=== PATIENT | female | born 2000 | race African-American/Black ===

== ENCOUNTER 2020-10-19 18:00 | Emergency (ER) | payer OTHER ==
[2020-10-19 19:01] LABS: BILIRUBIN,URINE NEGATIVE (NEGATIVE); GLUCOSE, URINE (UA) NEGATIVE (NEGATIVE); KETONES,URINE (UA) NEGATIVE (NEGATIVE); LEUKOCYTE ESTERASE, URINE NEGATIVE (NEGATIVE); NITRITE,URINE NEGATIVE (NEGATIVE); OCCULT BLOOD,URINE NEGATIVE (NEGATIVE); PROTEIN,URINE NEGATIVE (NEGATIVE); UROBILINOGEN,URINE 0.2 (NORMAL) E.U./dL (NORMAL)
[2020-10-19 19:03] LABS: CLARITY,URINE CLEAR (CLEAR); HCG UR QUAL NEGATIVE
--- NOTE | 2020-10-19 20:01 | ED Physician Documentation ---
History of Present Illness - Stated complaint Stated Complaint: FEMALE - Chief complaint Chief Complaint: General - History obtained from History obtained from: Patient - History of Present Illness Timing: Yesterday Pain level max: 2 Pain level now: 1 - Additonal information Additional information: 19-year-old female presents to the emergency department complaining of swelling to the left labia. Started last night and has continued today. Occurred once in the past. Resolved on its own after a few hours. Nothing makes it better or worse. No new soaps, detergents, lotions, lubricants. Review of Systems Constitutional: denies: Fever, Chills GI: denies: Vomiting, Diarrhea Skin: denies: Rash PD PAST MEDICAL HISTORY - Past Medical History Past Medical History: No - Past Surgical History Past Surgical History: No - Present Medications Home Medications: Ambulatory Orders Medication Instructions Recorded Confirmed Sulfamethox/Trimeth 800/160 1 each PO BID #14 tab 10/19/20 [Bactrim Ds 800/160] - Allergies Allergies/Adverse Reactions: Allergies Allergy/AdvReac Type Severity Reaction Status Date / Time No Known Drug Allergies Allergy Verified 10/19/20 18:10 PD ED PE NORMAL - Vitals Vital signs reviewed: Yes - General General: Alert and oriented X 3, No acute distress - Female Female : Line Pilot present (EVANGELISTA Kebede), Other (Mild swelling to the left Bartholin's gland. No skin changes. No drainage. Otherwise normal external exam) - Derm Derm: Warm and dry - Neuro Neuro: Alert and oriented X 3 - Psych Psych: Normal mood, Normal affect Results - Vitals Vitals: Vital Signs - 24 hr 10/19/20 10/19/20 18:06 20:12 Temperature 36.7 C 36.5 C Heart Rate 86 88 Respiratory 14 18 Rate Blood Pressure 154/77 H 120/71 O2 Saturation 100 100 Oxygen O2 Source Room air - Labs Labs: Laboratory Tests 10/19/20 18:49 Urine Color YELLOW Urine Clarity CLEAR Urine pH 6.0 Ur Specific Tovey <=1.005 Urine Protein NEGATIVE Urine Glucose (UA) NEGATIVE Urine Ketones NEGATIVE Urine Occult Blood NEGATIVE Urine Nitrite NEGATIVE Urine Bilirubin NEGATIVE Urine Urobilinogen 0.2 (NORMAL) Ur Leukocyte Esterase NEGATIVE Ur Microscopic Review NOT INDICATED Urine Culture Comments NOT INDICATED Urine HCG, Qual NEGATIVE PD MEDICAL DECISION MAKING - ED course Complexity details: considered differential, d/w patient ED course: 19-year-old female with a small Bartholin's gland cyst. Does not appear infected. Will trial conservative measures first, if fails to improve, she will start antibiotics and follow-up with her doctor. Patient counseled regarding signs and symptoms for which I believe and urgent re-evaluation would be necessary. Patient with good understanding of and agreement to plan and is comfortable going home at this time This document was made in part using voice recognition software. While efforts are made to proofread this document, sound alike and grammatical errors may occur. Departure - Departure Disposition: 01 Home, Self Care Clinical Impression: Bartholin gland cyst Condition: Good Instructions: ED Bartholins Cyst No Infec Follow-Up: your,doctor in 1 week [Other] Prescriptions: Sulfamethox/Trimeth 800/160 [Bactrim Ds 800/160] 1 each PO BID #14 tab Comments: The cyst does not appear infected at this time, however if this continues to worsen despite conservative treatment, start the antibiotics and follow-up with your doctor. Return if you worsen Discharge Date/Time: 10/19/20 20:12
[2020-10-19 20:14] VITALS: BP 120/71
== END 2020-10-19 20:12 | disposition home or self-care (01) ==
LOC: ED 18:00
DX: N75.0 Cyst of Bartholin's gland (principal)
CPT/HCPCS: 81001; 81003; 81025; 87086; 99283; 99284

== ENCOUNTER 2021-03-01 16:11 | Emergency (ER) | payer OTHER ==
[2021-03-01 16:24] VITALS: BP 144/68
--- NOTE | 2021-03-01 17:16 | ED Physician Documentation ---
PD HPI SKIN - Stated complaint Stated Complaint: HIVES - Chief complaint Chief Complaint: Wound - History obtained from History obtained from: Patient - History of Present Illness Timing - onset: Yesterday Timing - duration: Days (2) Timing - details: Abrupt onset, Still present, Waxing and waning Location: [place] Quality / character: Itchy, Discolored, Raised (patchy flat slightly raised c/w hives). No: Vesicular Improved by: Benadryl (improved moderately last evening but returned few hours later.) Associated symptoms: No: Fever, Facial swelling, Dyspnea, Abd pain, N/V/D Contributing factors: No: Exposed to medication, Exposed to food, Exposed to soap / lotion, Insect bite /sting, Recent illness Similar symptoms before: Has not had sx before Recently seen: Not recently seen Review of Systems Constitutional: denies: Fever, Chills Nose: reports: Sinus pressure / pain. denies: Rhinorrhea / runny nose, Congestion Throat: denies: Sore throat Respiratory: denies: Dyspnea, Cough GI: denies: Nausea, Vomiting Skin: reports: Rash (hives) Neurologic: denies: Near syncope, Altered mental status, Headache PD PAST MEDICAL HISTORY - Past Medical History Past Medical History: Yes Cardiovascular: Deep vein thrombosis Respiratory: None Neuro: None Endocrine/Autoimmune: None - Past Surgical History Past Surgical History: Yes - Present Medications Home Medications: Ambulatory Orders Medication Instructions Recorded Confirmed Cetirizine [ZyrTEC] 10 mg PO BID #15 tablet 03/01/21 dexAMETHasone [Decadron] 4 mg PO DAILY #5 tablet 03/01/21 - Allergies Allergies/Adverse Reactions: Allergies Allergy/AdvReac Type Severity Reaction Status Date / Time No Known Drug Allergies Allergy Verified 03/01/21 16:23 - Social History Does the pt smoke?: No Smoking Status: Never smoker Does the pt drink ETOH?: No Does the pt have substance abuse?: No - Immunizations Immunizations are current?: Yes PD ED PE NORMAL - Vitals Vital signs reviewed: Yes - General General: Alert and oriented X 3, No acute distress, Well developed/nourished - HEENT HEENT: Pharynx benign (no oral swelling. Normal voice. ) - Neck Neck: Supple, no meningeal sign, No adenopathy - Cardiac Cardiac: RRR, No murmur - Respiratory Respiratory: Clear bilaterally - Derm Derm: Normal color, Warm and dry, Other (patchy nonvesicular slightly raised red itchy rash c/w hives. ) - Neuro Neuro: Alert and oriented X 3, No motor deficit, Normal speech Results - Vitals Vitals: Oxygen O2 Source Room air PD MEDICAL DECISION MAKING - ED course Complexity details: considered differential (has diffuse hives without eric oedema. ), d/w patient Departure - Departure Disposition: 01 Home, Self Care Clinical Impression: Acute urticaria Condition: Stable Record reviewed to determine appropriate education?: Yes Instructions: ED Urticaria Follow-Up: LILLIANA BLANCHARD DO [Primary Care Provider] - Prescriptions: dexAMETHasone [Decadron] 4 mg PO DAILY #5 tablet Cetirizine [ZyrTEC] 10 mg PO BID #15 tablet Comments: Stay well-hydrated. Use the Decadron steroid anti-inflammatory daily for 5 more days. Cetirizine antihistamine twice daily for the next 5 days to a week. You can continue Benadryl every 6 hours if needed for itching as well. I would anticipate improvement and resolution in this over the next 2 to 3 days. Recheck if not improved in that timeframe or if recurrent in the near future. Most episodes of hives like this are solitary and nonrecurring. If it persists or recurs soon, then there will be consideration for allergy testing or further evaluation of the cause. Discharge Date/Time: 03/01/21 17:43
[2021-03-01] MEDS ORDERED: DEXAMETHASONE 10 MG/ML VIAL PO STA (17:27)
[2021-03-01] MEDS ORDERED: CHERRY SYRUP 10 ML UDC PO ONE (17:27)
[2021-03-01] MEDS ORDERED: CETIRIZINE 10 MG TABLET PO STA (17:27)
[2021-03-01] MEDS ORDERED: diphenhydrAMINE 25 MG CAPSULE PO STA (17:28)
== END 2021-03-01 17:43 | disposition home or self-care (01) ==
LOC: ED 16:11
DX: L50.9 Urticaria, unspecified (principal); Z86.718 Personal history of other venous thrombosis and embolism
CPT/HCPCS: 99282; 99284; A9270

== ENCOUNTER 2022-02-23 17:39 | Emergency (ER) | payer OTHER ==
[2022-02-23] MEDS ORDERED: ONDANSETRON 4 MG/2 ML VIAL IVP STA (18:18)
[2022-02-23] MEDS ORDERED: SODIUM CHLORIDE 0.9% 1,000 ML IV STA (18:18)
--- NOTE | 2022-02-23 18:24 | ED Physician Documentation ---
History of Present Illness - Stated complaint Stated Complaint: SOA/DIZZY - Chief complaint Chief Complaint: Resp - Additonal information Additional information: 21-year-old female who is 11 weeks presents the emergency department f or generally feeling unwell. She reports that she began feeling heaviness in her chest and short of air this morning. Over the last 2 to 3 days she is also developed a subtle mostly right-sided headache. She has had uncontrolled nausea and vomiting in this . She is currently taking progesterone vaginally. A1. No lower pelvic pain. No vaginal bleeding or spotting. 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 She did require mechanical clot extraction as well as thrombectomy. She states that she had a allergic reaction to the suspected tPA that was instilled though she is unable to tell me what this reaction was. She denies any recent travel. No leg swelling or calf pain. no dysuria Review of Systems Constitutional: denies: Fever, Chills Eyes: reports: Reviewed and negative Nose: reports: Reviewed and negative Throat: reports: Reviewed and negative Cardiac: reports: Reviewed and negative Respiratory: reports: Reviewed and negative GI: reports: Nausea : reports: Reviewed and negative PD PAST MEDICAL HISTORY - Past Medical History Cardiovascular: Deep vein thrombosis Respiratory: None Neuro: None Endocrine/Autoimmune: None - Past Surgical History Past Surgical History: Yes - Present Medications Home Medications: Ambulatory Orders Medication Instructions Recorded Confirmed Cetirizine [ZyrTEC] 10 mg PO BID #15 tablet 03/01/21 dexAMETHasone [Decadron] 4 mg PO DAILY #5 tablet 03/01/21 Ondansetron Odt [Zofran] 4 mg TL Q6H PRN #10 tablet 02/23/22 - Allergies Allergies/Adverse Reactions: Allergies Allergy/AdvReac Type Severity Reaction Status Date / Time banana Allergy Respiratory Verified 02/23/22 17:57 melon Allergy Respiratory Verified 02/23/22 17:57 - Social History Does the pt smoke?: No Smoking Status: Never smoker Does the pt drink ETOH?: No Does the pt have substance abuse?: No - Immunizations Immunizations are current?: Yes PD ED PE NORMAL - General General: Alert and oriented X 3, No acute distress, Well developed/nourished - HEENT HEENT: Atraumatic, Moist mucous membranes - Neck Neck: Supple, no meningeal sign, No adenopathy - Cardiac Cardiac: RRR, No murmur - Respiratory Respiratory: No respiratory distress - Abdomen Abdomen: Normal bowel sounds, Soft, Non tender - Back Back: No CVA TTP, No spinal TTP - Derm Derm: Normal color, Warm and dry, No rash - Extremities Extremities: No deformity, No tenderness to palpate, Normal ROM s pain - Neuro Neuro: Alert and oriented X 3, workforce services representative 2-12 intact Eye Opening: Spontaneous Motor: Obeys Commands Verbal: Oriented GCS Score: 15 Results - Vitals Vitals: Vital Signs - 24 hr 02/23/22 02/23/22 02/23/22 17:48 18:14 19:00 Temperature 36.9 C Heart Rate 88 93 85 Respiratory 14 16 21 Rate Blood Pressure 144/81 H 157/96 H 140/78 H O2 Saturation 100 100 100 Oxygen O2 Source Room air - Labs Labs: Laboratory Tests 02/23/22 02/23/22 02/23/22 18:20 18:20 18:20 WBC 7.6 RBC 4.59 Hgb 12.8 Hct 37.7 MCV 82.1 MCH 27.9 MCHC 34.0 RDW 13.0 Plt Count 248 MPV 10.1 Neut # (Auto) 4.5 Lymph # (Auto) 2.5 Mclean # (Auto) 0.5 Eos # (Auto) 0.1 Baso # (Auto) 0.0 Absolute Nucleated RBC 0.00 Nucleated RBC % 0.0 D-Dimer 255.0 Sodium 137 Potassium 3.7 Chloride 103 Carbon Dioxide 24 Anion Gap 10.0 BUN 9 Creatinine 0.7 Estimated GFR (MDRD) 127 Glucose 85 Calcium 9.9 Total Bilirubin 0.4 AST 18 ALT 17 Alkaline Phosphatase 41 L Total Protein 8.3 H Albumin 4.3 Globulin 4.0 Albumin/Globulin Ratio 1.1 Lipase 47 - Rads (name of study) CT head Radiology: Final report received (Unremarkable CT of the brain without intracranial hemorrhage or mass-effect.) PD MEDICAL DECISION MAKING - ED course Complexity details: considered differential, d/w patient, d/w family ED course: 21-year-old female who is approximately 11 weeks presents the emergency department for evaluation of shortness of air that began this morning as well as headache and feeling generally unwell. She is taking progesterone intravaginally. She is followed by [facility]. She does have a history of a dural venous thrombus in 2017 that was mechanically extracted and also required the use of tPA. Patient appears very well without any hypoxia or labored breathing. She has no leg swelling. Unremarkable cardiopulmonary auscultation. Given the history of dural venous thrombus a CT of the head was completed which was negative. She has no focal neurodeficits. In addition to this given the history of sinus thrombus a D-dimer was completed which is negative. This essentially makes a PE and or a dural venous thrombus on likely. Here in the emergency department she was given a liter of IV fluids as well as some Zofran with some improvement in her symptoms. a limited bedside ultrasound reveals a live IUP with movement. heart rate noted to be 166. I have attempted to reach [facility] cho[facility] 2[facility] to no avail. PT will be dc home. rx for zofran. f/u with OB, emergent return precautions discussed Departure - Departure Disposition: 01 Home, Self Care Clinical Impression: Shortness of breath Nausea and vomiting Qualifiers: Vomiting type: unspecified Qualified Code(s): R11.2 - Nausea with vomiting, unspecified Condition: Stable Record reviewed to determine appropriate education?: Yes Prescriptions: Ondansetron Odt [Zofran] 4 mg TL Q6H PRN #10 tablet PRN Reason: Nausea / Vomiting Comments: Ailyn you are seen today in the emergency department because you have had a headache and shortness of breath. Your screening labs are essentially normal including the D-dimer which is a Lab that is used to evaluate your risk of forming clots abnormally. The CT of your head did not show any worrisome findings. Here in the emergency department we did give you a liter of IV fluid as well as some Zofran which seems to be making her symptoms better. Very limited bedside ultrasound did reveal a intrauterine with good movement as well as a heart rate of 166. To help manage the nausea and sent [facility] [place]. Please discuss this ED visit with your OB. If at any point you have fainting episodes, sudden severe headache, uncontrolled vomiting, or racing heart while at rest then please return to the ER for second evaluation.
[2022-02-23 18:26] LABS: BASOPHILS % (AUTO) 0.5 %; EOSINOPHILS # (AUTO) 0.1 10^3/uL (0.0-0.7); EOSINOPHILS % (AUTO) 1.9 %; HCT - HEMATOCRIT 37.7 % (37.0-47.0); HGB - HEMOGLOBIN 12.8 g/dL (12.0-16.0); LYMPHOCYTES # (AUTO) 2.5 10^3/uL (1.5-3.5); LYMPHOCYTES % (AUTO) 32.5 %; MEAN CORPUSCULAR HEMOGLOBIN 27.9 pg (27.0-31.0); MEAN CORPUSCULAR VOLUME 82.1 fL (81.0-99.0); MEAN PLATELET VOLUME 10.1 fL (7.9-10.8); MONOCYTES # (AUTO) 0.5 10^3/uL (0.0-1.0); MONOCYTES % (AUTO) 6.1 %; NEUTROPHILS # (AUTO) 4.5 10^3/uL (1.5-6.6); NEUTROPHILS % (AUTO) 58.9 %; PLT - PLATELET COUNT 248 10^3/uL (130-450); RED BLOOD COUNT 4.59 10^6/uL (4.20-5.40); WHITE BLOOD COUNT 7.6 x10^3/uL (4.8-10.8)
[2022-02-23 18:37] LABS: ALBUMIN 4.3 g/dL (3.2-5.5); ALBUMIN/GLOBULIN RATIO 1.1 (1.0-2.2); BILIRUBIN,TOTAL 0.4 mg/dL (0.2-1.0); CALCIUM 9.9 mg/dL (8.5-10.3); CREATININE 0.7 mg/dL (0.4-1.0); POTASSIUM 3.7 mmol/L (3.5-5.0); TOTAL PROTEIN 8.3 g/dL (6.7-8.2)
--- NOTE | 2022-02-23 18:43 | CT Report ---
PROCEDURE: CT brain without contrast INDICATIONS: History of venous sinus thrombosis in 2017 TECHNIQUE: Noncontrast 4.5 mm thick angled axial sections acquired from the foramen magnum to the vertex. For r adiation dose reduction, the following was used: automated exposure control, adjustment of mA and/or kV according to patient size. COMPARISON: None. FINDINGS: Image quality: Excellent. CSF spaces: Basal cisterns are patent. No extra-axial fluid collections. Ventricles are normal in size and shape. Brain: No midline shift. No intracranial masses or hemorrhage. Landon-white matter interface is norm al. Skull and face: Calvarium and visualized facial bones are intact, without suspicious lesions. Sinuses: Visualized sinuses and mastoids are clear. IMPRESSION: [address] brain without intracranial hemorrhage or mass effect Reviewed by: Beck Saab MD on 02/23/2022 5:42 PM AKDT Approved by: Beck Saab MD on 02/23/2022 5:42 PM AKDT Station ID: [id number]
[2022-02-23 19:40] VITALS: BP 123/73
== END 2022-02-23 19:59 | disposition home or self-care (01) ==
LOC: ED 17:39
DX: O26.891 Other specified pregnancy related conditions, first trimester (principal); R07.9 Chest pain, unspecified; R06.09 Other forms of dyspnea; O21.0 Mild hyperemesis gravidarum; Z3A.11 11 weeks gestation of pregnancy
CPT/HCPCS: 36415; 80053; 83690; 85025; 85379; 96374; 99284

== ENCOUNTER 2023-12-05 11:29 | Outpatient (CLI) | payer OTHER ==
[2023-12-05 17:41] LABS: HCT - HEMATOCRIT 35.8 % (37.0-47.0); HGB - HEMOGLOBIN 11.4 g/dL (12.0-16.0); MEAN CORPUSCULAR HEMOGLOBIN 28.3 pg (27.0-31.0); MEAN CORPUSCULAR HGB CONC 31.8 g/dL (32.0-36.0); MEAN CORPUSCULAR VOLUME 88.8 fL (81.0-99.0); MEAN PLATELET VOLUME 11.3 fL (7.9-10.8); RED BLOOD COUNT 4.03 10^6/uL (4.20-5.40); RED CELL DISTRIBUTION WIDTH 13.4 % (12.0-15.0); WHITE BLOOD COUNT 9.1 x10^3/uL (4.8-10.8)
[2023-12-06 04:09] LABS: RPR Non Reactive (Non Reactive)
== END 2023-12-05 11:30 | disposition home or self-care (01) ==
LOC: LAB.N 11:29
PROVIDERS: ATTEND Student in an Organized Health Care Education/Training Program
DX: O09.92 Supervision of high risk pregnancy, unspecified, second trimester (principal); Z3A.25 25 weeks gestation of pregnancy
CPT/HCPCS: 36415; 81599; 82950; 85027; 86364; 86592; 86850; 86870; 86880; 86900; 86901